=== PATIENT | female | born 1965 | race Caucasian/White ===

== ENCOUNTER 2020-02-09 06:24 | Emergency (ER) | payer BC ==
[2020-02-09] MEDS ORDERED: Ibuprofen 200 MG TAB ONE (06:42)
--- NOTE | 2020-02-09 08:43 | RAD ---
FOUR VIEWS OF THE LEFT KNEE: COMPARISON: None. HISTORY: Fall with knee pain. FINDINGS: Four views of the left knee show no evidence of acute fracture or dislocation. A small patellofemora l osteophyte is seen. No knee effusion is seen. A calcification posterior to the knee likely repres ents a flabella. IMPRESSION: No evidence of acute osseous abnormality. POS: EAA
--- NOTE | 2020-02-09 08:54 | RAD ---
THREE VIEWS LEFT WRIST: COMPARISON: None. HISTORY: Fall with wrist pain. FINDINGS: Three views of the left wrist show no evidence of acute fracture or dislocation. Moderate degenerati ve change is seen in the 1st CMC joint. Mild soft tissue swelling is seen. IMPRESSION: 1. No evidence of acute osseous abnormality. 2. Moderate left thumb osteoarthritis. POS: EAA
--- NOTE | 2020-02-09 08:56 | RAD ---
TWO VIEWS LEFT HIP: COMPARISON: None. HISTORY: Fall with left hip pain. FINDINGS: Two views left hip show no evidence of acute fracture or dislocation. No degenerative changes are se en. Tubal ligation clips are seen in the pelvis. IMPRESSION: No evidence of acute osseous abnormality. POS: EAA
== END 2020-02-09 07:40 | disposition home or self-care (01) ==
LOC: ERS 06:24
DX: S70.02XA Contusion of left hip, initial encounter (principal); S60.212A Contusion of left wrist, initial encounter; S80.02XA Contusion of left knee, initial encounter; F31.9 Bipolar disorder, unspecified; F17.210 Nicotine dependence, cigarettes, uncomplicated; Z79.01 Long term (current) use of anticoagulants; Z79.82 Long term (current) use of aspirin; Z79.899 Other long term (current) drug therapy; W18.30XA Fall on same level, unspecified, initial encounter; Y92.512 Supermarket, store or market as the place of occurrence of the external cause